=== PATIENT | male | born 1985 | race Caucasian/White ===

== ENCOUNTER 2022-02-24 07:16 | Emergency (ER) | payer SELFPAY ==
[~2022-02-24] VITALS: Ht 180.3 cm; Wt 106.1 kg
--- NOTE | 2022-02-24 07:18 | NUR ---
to er bed 13. [id number] AND [employer] FROM HOME C/O OVERDOSE. PT AGITATED AND RESTLESS. ATTACHED TO MONITOR, VITALS ARE ELEVEATED, AWARE. DR WESLEY AT BEDSIDE. 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 RESTRAINTS APPLIED FOR SAFETY.
[2022-02-24] MEDS ORDERED: LORAZEPAM INJ 2 MG/ML VIAL IM ONE (07:30)
[2022-02-24] MEDS ORDERED: diphenhydrAMINE HCL 50 MG/ML VIAL IM ONE (07:30)
[2022-02-24] MEDS ORDERED: LORAZEPAM INJ 2 MG/ML VIAL ONE (07:31)
[2022-02-24] MEDS ORDERED: diphenhydrAMINE HCL 50 MG/ML VIAL ONE (07:32)
[2022-02-24 08:58] LABS: BILIRUBIN,URINE MODERATE (NEGATIVE); COLOR,URINE DARK YELLOW (YELLOW); LEUKOCYTE ESTERASE ,URINE NEGATIVE (NEGATIVE); NITRITE, URINE NEGATIVE (NEGATIVE); PH,URINE 5.5 (5.0-8.0); PROTEIN,URINE 30 mg/dl (NEGATIVE); UGLUCOSE NEGATIVE (NEGATIVE)
--- NOTE | 2022-02-24 09:00 | NUR ---
REBECCA YOUNG ([facility]) [phone]
[2022-02-24 09:14] LABS: BASOPHILS % (AUTO) 0.2 % (0.0-2.0); EOSINOPHILS % (AUTO) 0.3 % (0.0-6.0); HEMATOCRIT 40 % (39-51); HEMOGLOBIN 13.8 g/dL (13.5-17.5); LYMPHOCYTES # (AUTO) 1.1 K/uL (0.8-4.8); LYMPHOCYTES % (AUTO) 13.3 % (20.0-44.0); MEAN CORPUSCULAR HGB CONC 34 g/dl (31.0-36.0); MEAN CORPUSCULAR VOLUME 95 fL (80-96); MONOCYTES # (AUTO) 0.6 K/uL (0.1-1.30); MONOCYTES % (AUTO) 6.7 % (2.0-12.0); NEUTROPHILS # (AUTO) 6.6 K/uL (1.8-8.9); NEUTROPHILS % (AUTO) 79.5 % (43.0-81.0); PLATELET COUNT (AUTO) 239 K/uL (150-450); RED BLOOD CELL COUNT(AUTO) 4.22 MIL/uL (4.5-6.0); WHITE BLOOD COUNT (AUTO) 8.3 K/uL (4.3-11.0)
[2022-02-24 09:40] LABS: CALCIUM, SERUM 9.1 mg/dL (8.5-10.1); CARBON DIOXIDE 28 mmol/L (21-32); CHLORIDE 105 mmol/L (98-107); CREATININE 1.2 mg/dL (0.6-1.3); GLUCOSE 105 mg/dL (74-106); POTASSIUM 3.7 mmol/L (3.5-5.1); SODIUM SERUM 144 mmol/L (136-145); UREA NITROGEN, BLOOD 14 mg/dL (7-18)
[2022-02-24 09:54] LABS: ALANINE AMINOTRANSFERASE 26 U/L (12-78); ALBUMIN 4.5 g/dL (3.4-5.0); ALCOHOL, BLOOD < 3 mg/dL (0-0); ALKALINE PHOSPHATASE 70 U/L (46-116); ASPARTATE AMINOTRANSFERASE 27 U/L (15-37); BILIRUBIN,DIRECT 0.2 mg/dL (0.0-0.2); BILIRUBIN,TOTAL 0.7 mg/dL (0.2-1.0)
[2022-02-24 10:08] LABS: BACTERIA,URINE Few /HPF (None Seen); CALCIUM OXALATE CRYSTALS,UR Few /HPF (None Seen); RBC,URINE 0-2 /HPF (0-2); SQUAMOUS EPITHELIAL CELL,UR Few /HPF (None Seen); URINE AMORPHOUS URATE Few /HPF (None Seen); WBC,URINE 0-2 /HPF (0-3)
[2022-02-24 10:09] LABS: MUCUS,URINE Few /LPF (None Seen); SPERM,URINE Few /HPF (None Seen)
[2022-02-24 10:12] LABS: ACETAMINOPHEN 0 ug/ml (10-30)
--- NOTE | 2022-02-24 16:14 | NUR ---
DAD WILL BE HERE IN 30 MINS. TO 1 HR TO PICK HIM UP PER BEV GREENEW
--- NOTE | 2022-02-24 16:29 | NUR ---
SS Consult: SS Consult requested for drug abuse. The pt. is a 36-year-old male patient who came in for meth use per EMR. Per EMR, the pt.'s friend, called police because pt. was "pacing, acting bizarrely, erratically with significant agitation and difficulty with redirection". Per EMR, she felt unsafe and that he was a danger to himself as well. Upon SS consult, the pt. is Alert & Oriented x 4 and makes good eye contact. The pt. appears well-groomed with elevated mood & affect. The pt.'s speech and thought process are WNL. Pt. remained calm & cooperative throughout interview. Pt. denies current SI/ HI and denies hallucinations. SW explored Patient's mental health Hx. Pt. denies any mental illness. SW explored pt.'s living situation. Patient states he had a friend's and was staying at his best friend's home. Pt. says he has been sober for 7 months and used "a small amount of meth last night. TYLER explored pt.'s support system. Pt. states his family is his support system and asked that SW call his father Kostas Kilgore [phone]. Per pt., he lives with a roommate and he his roommate both go to outpatient Tx at [facility] [[address] [place] [address] ]. Per pt. he will continue his treatment there. Plan: Per pt.'s request TYLER called his father Kostas Kilgore [phone]. Per Isaac he will hot die picker the pt. TYLER provide pt. with the following addiction resources and pt. accepted them. ADDICTION RESOURCES For Drugs and Alcohol [facility] sober living Referrals For Rehabilitation once sober Address:[address] [place] [address] [facility] [address] [place] [address] Detox/residential [facility] Substance Abuse Helpline ([facility]) Outpatient, residential treatment, recovery support for youth/adults [facility] www.actionfamimad river community hospitalounsEscape the City [facility] [place] Teen programs for drug/alcohol education and support Yaritza Daniels [place]. Program for adults, sliding scale provides support and education [facility] [place] www.AccountNowRoomishation.org [place]; Detox/residential treatment programs; transition to sober living [facility] www.cri-help.org [place]; Outpatient and residential treatment programs; transition to sober living [facility] TEL: [phone] I-[facility]ARP [facility] [place] [facility] Robi Rodriguez; Outpatient education and supportive programs for teens and adults [place] [facility] www.[facility].org [place]; Residential treatment and work program for females only [facility] www.[facility].org [place]: Outpatient/residential treatment program for teens and young adults [facility] www.[facility].org [facility] Detox, inpatient, outpatient for adults and youth [facility], [facility]. [place]; Outpatient programs and referrals to community residential programs. Alcoholics Anonymous -SFV information and meeting and scheduleswww.aa-intergroup.org Divya https://al-anocaroline.org/ [place] support groups for family of alcoholics. Marijuana Anonymous www.madistrict6.org -SFV listing of meetings Narcotics Anonymous www.na.org SOBER LIVING RESOURCES [facility] www.soberhouFoldaxg.net A non-profit agency that provides resources to recovery and sober living homes throughout [facility] Men's Sober Living Homes: A Work in Progress, Tony Maynor [facility], [facility] Women's Sober Living Homes: [facility] x [address] My New BeginningSELMA [facility] Co[facility] Sober Living Homes: [facility] Counsel[facility]--Outpatient [facility] [address] [place] [address] (Specializes in in-depth psychotherapy for emotional distress: anxiety, depression, interpersonal conflicts, life transitions, childhood abuse) [facility] [address] [place] [address] (Assist with solving problem marital difficulties, separation & divorce, aging parents, & grief, chronic & terminal illness) [facility] [address] [place] [address] (Deal with loss & grief, anxiety, marital difficulties) Homebound/Mental Health Services [address] [facility] [address] [place] [address] (Provide in-home mental services to people who are incapable of leaving their homes) [facility] Needs of the Elderly Senior Service/Resource Center [address] [place] [address] [facility] [address] [place] [address] Mental Health Services [facility] [place] [address] [place] [address] Services: Outpatient therapy for children, teens, young adults, adults, older adults, and families; Psychiatric services, medication support Psychiatric Outpatient Services [facility] Partial Hospitalization and Intensive Outpatient Program (Managed Care and [place] Only)[address] [facility] [phone] [facility] Partial Hospitalization and Outpatient Hbecaoq85361 [facility] [address], [place] [phone] [facility] Kce[address] Jerilyn [facility]. [address] [place], [place] [phone] [facility] Partial Hospitalization and Outpatient Ldhknvo35985 Helen Garnica, [phone] Crisis and Hotline Telephone Numbers 24-Hour service unless stated [place] Crisis Hotlines: [facility] Mental Health/Crisis Line........195.970.1045 Suicide Prevention Center (24 Hours).......632.215.6451 Suicide Prevention Crisis Center.......[phone] (24 Hours) Assaults Against Women Hotline.........699.183.2031 (24 Hours -- [facility]) Women and Children Crisis Correction...........888.353.4083 (24 Hours) Child Abuse Hotline............893.775.7548 [facility] (24 Hours)..........[phone] Alcoholics Anonymous (24 Hours)..........[phone] Cocaine Anonymous (24 Hours)............533.772.2563 Narcotics Anonymous (24 Hours)..........[phone] Marlyn Najera [facility] [address], [place] [address]
--- NOTE | 2022-02-24 17:03 | NUR ---
Patient discharged to home in stable condition. Written and verbal after care instructions given. Patient verbalizes understanding of instruction.
[2022-02-24 17:04] VITALS: BP 132/81
== END 2022-02-24 17:04 | disposition home or self-care (01) ==
LOC: ER 07:16
DX: F15.159 Other stimulant abuse with stimulant-induced psychotic disorder, unspecified (principal); R45.1 Restlessness and agitation; R45.6 Violent behavior; F17.200 Nicotine dependence, unspecified, uncomplicated; Z60.2 Problems related to living alone
CPT/HCPCS: 99285; 96372 ×2; 85025; 80048; 80076; 81001; 36415; 80143; 80320; 80307; J2060; J1200; G0480